=== PATIENT | female | born 1995 | race Caucasian/White ===

== ENCOUNTER → 2016-06-26 | Outpatient (REF) | payer BC ==
[2016-06-26 16:21] LABS: FREE T4 1.4 NG/DL (0.78-1.33)
== END ==
LOC: M SFHCPLAZ 14:11
PROVIDERS: ATTEND Nurse Practitioner Family
DX: R94.6 Abnormal results of thyroid function studies (principal); R63.4 Abnormal weight loss; R10.13 Epigastric pain

== ENCOUNTER → 2016-08-03 | Outpatient (CLI) | payer BC ==
--- NOTE | 2016-08-03 11:11 | REP ---
THYROID ULTRASOUND: Real-time sonographic evaluation of the thyroid is performed. Both lobes are normal in size and echotexture with no mass. Right lobe measures 4.4 x 1.5 x 1.5 cm and left lobe 4.3 x 1.2 x 1.4 cm. IMPRESSION: Negative thyroid ultrasound. Signed by Von Stone MD 08/03/2016 04:56 P
== END ==
LOC: M RAD 09:32
PROVIDERS: ATTEND Nurse Practitioner Family
DX: R94.6 Abnormal results of thyroid function studies (principal); R63.4 Abnormal weight loss

== ENCOUNTER → 2017-07-09 | Outpatient (REF) | payer BC ==
[2017-07-09 19:23] LABS: APPEARANCE, URINE CLOUDY (CLEAR); BACTERIA, URINE AUTO 1+ (NEGATIVE); BILIRUBIN, URINE AUTO NEGATIVE (NEGATIVE); BLOOD, URINE BLOOD 3+ (NEGATIVE); COLOR, URINE YELLOW (YELLOW); GLUCOSE, URINE (UA) AUTO NEGATIVE (NEGATIVE); KETONE, URINE AUTO NEGATIVE (NEGATIVE); LEUKOCYTE ESTERASE, URINE AUTO 3+ (NEGATIVE); MUCUS, URINE SMALL (NEGATIVE); NITRITE, URINE AUTO NEGATIVE (NEGATIVE); PROTEIN, URINE AUTO NEGATIVE (NEGATIVE); RBC, URINE AUTO 31 /HPF (0-3); SPECIFIC GRAVITY URINE AUTO 1.012 (1.002-1.035); SQUAMOUS EPITHELIAL CELL UR AU 5 /HPF (0-6); TRANSITIONAL EPITHELIAL AUTO <1 /HPF; UROBILINOGEN, URINE AUTO 0.2 mg/dL (0.0-2.0); WBC, URINE AUTO TNTC /HPF (0-3)
== END ==
LOC: M SFHCWAGY 17:10
DX: N30.01 Acute cystitis with hematuria (principal)
CPT/HCPCS: 81001

== ENCOUNTER → 2017-09-22 | Outpatient (REF) | payer BC ==
[2017-09-22 13:49] LABS: CHLAMYDIA DNA AMPLIFICATION NEGATIVE (NEGATIVE); GC DNA AMPLIFICATION NEGATIVE (NEGATIVE)
== END ==
LOC: M SFHCWAGY 09:59
DX: Z12.4 Encounter for screening for malignant neoplasm of cervix (principal)
CPT/HCPCS: 87591

== ENCOUNTER → 2018-10-07 | Outpatient (REF) | payer BC | LOC: M SFHCWAGY 10:21 | PROVIDERS: ATTEND Nurse Practitioner Women's Health | DX: Z12.4 Encounter for screening for malignant neoplasm of cervix (principal) ==

== ENCOUNTER → 2019-08-07 | Outpatient (CLI) | payer BC ==
[2019-08-07 13:06] LABS: FREE T4 0.98 NG/DL (0.76-1.46); THYROID STIMULATING HORMONE 1.33 uIU/ML (0.358-3.740)
[2019-08-07 13:08] LABS: FOLLICLE STIMULATING HORMONE 5.2 mIU/mL; LUTEINIZING HORMONE 5.4 mIU/mL
== END ==
LOC: M PLALAB 10:05
PROVIDERS: ATTEND Nurse Practitioner Women's Health
DX: N92.6 Irregular menstruation, unspecified (principal)

== ENCOUNTER → 2019-08-11 | Outpatient (CLI) | payer BC ==
--- NOTE | 2019-08-11 10:29 | REP ---
Pelvic sonography: History: Irregular menstrual bleeding. Findings: Transabdominal scanning demonstrates normal uterine dimensions of 7.5 x 3.3 x 4.6 cm. Endometrial echo 0.5 cm thick. No focal uterine mass is seen. There is a trace of cul-de-sac fluid adjacent the right ovary consistent with physiologic fluid. The patient declined transvaginal imaging. Right ovary dimensions are normal at 2.8 x 2.2 x 1.7 cm left ovary measures 3.2 x 1.9 x 3.1 cm. It has a normal appearance as well. Impression: No abnormality noted. Electronically Signed by Tao Aguilar MD 08/11/2019 10:21 A
== END ==
LOC: M WHC 08:20
PROVIDERS: ATTEND Nurse Practitioner Women's Health
DX: N92.6 Irregular menstruation, unspecified (principal)

== ENCOUNTER → 2020-01-17 | Outpatient (REF) | payer BC | LOC: M LAB REF 13:31 | PROVIDERS: ATTEND Physician Assistant | DX: Z11.59 Encounter for screening for other viral diseases (principal) ==

== ENCOUNTER → 2020-05-27 | Outpatient (REF) | payer BC ==
[2020-05-27 17:53] LABS: BASO # 0.4 10^3/uL (0.0-0.2); BASO % 2.2 % (0.0-1.0); EOS # 0.1 10^3/uL (0.0-0.5); EOS % 0.4 % (0.0-3.0); HEMATOCRIT 43.8 % (36.0-47.0); HEMOGLOBIN 14.7 g/dl (12.0-15.5); LYMPH # 13.3 10^3/uL (1.5-5.0); MEAN CORPUSCULAR HEMOGLOBIN 32.5 pg (27.0-33.0); MEAN CORPUSCULAR HGB CONC 33.6 g/dl (32.0-36.5); MEAN CORPUSCULAR VOLUME 96.7 fl (80.0-96.0); MONO # 0.8 10^3/uL (0.0-0.8); MONO % 4.7 % (0.0-5.0); NEUTROPHILS # 1.6 10^3/uL (1.5-8.5); NEUTROPHILS % 9.7 % (36.0-66.0); PLATELET COUNT, AUTOMATED 180 10^3/uL (150-450); RED BLOOD COUNT 4.53 10^6/uL (4.00-5.40); WHITE BLOOD COUNT 16.2 10^3/uL (4.0-10.0)
[2020-05-29 17:07] LABS: EBV VIRAL CAPSID AG IgG 50.3 U/mL (0.0-17.9); EBV VIRAL CAPSID AG IgM >160.0 U/mL (0.0-35.9)
== END ==
LOC: M SFHCPLAZ 15:02
PROVIDERS: ATTEND Family Medicine
DX: R59.1 Generalized enlarged lymph nodes (principal)

== ENCOUNTER 2022-08-18 01:16 | Emergency (ER) | payer BC ==
[~2022-08-18] VITALS: Ht 157.5 cm; Wt 70.6 kg
[2022-08-18 02:41] VITALS: BP 116/74
[2022-08-18] MEDS ORDERED: CEPH500C PO (02:54)
[2022-08-18] MEDS ORDERED: PYRI1TAB5 PO (02:54)
[2022-08-18] MEDS ORDERED: CEPHALEXIN 500 MG CAP PO ONE (02:55)
[2022-08-18] MEDS ORDERED: PHENAZOPYRIDINE 100 MG TAB PO ONE (02:55)
== END 2022-08-18 03:20 | disposition home or self-care (01) ==
LOC: M ED 01:16
DX: N39.0 Urinary tract infection, site not specified (principal); Z79.2 Long term (current) use of antibiotics